=== PATIENT | male | born 1985 | race Hispanic/Latino ===

== ENCOUNTER 2019-10-17 17:30 | Emergency (ER) | payer SELFPAY ==
--- NOTE | 2019-10-17 18:28 | RAD REPORT ---
EXAM DESCRIPTION: Connor Single View10/17/2019 6:18 pm CLINICAL HISTORY: cough COMPARISON: none FINDINGS: The lungs appear clear of acute infiltrate. The heart is normal size IMPRESSION: No acute abnormalities displayed
[2019-10-17] MEDS ORDERED: CEFTRIAXONE/SWI 1gm 1 GM/10 ML SYR ONE (18:40)
[2019-10-17] MEDS ORDERED: METHYLPREDNISOLONE 125 MG INJ ONE (18:40)
[2019-10-17] MEDS ORDERED: NA CHLORIDE 0.9% 1,000 ML ONE (18:40)
[2019-10-17] MEDS ORDERED: predniSONE 20 MG TAB ONE (18:40)
[2019-10-17] MEDS ORDERED: AZITHROMYCIN IV 500 MG in NA CHLORIDE 0.9% 250 ML IVPB ONE (19:00)
[2019-10-17 19:13] LABS: Absolute Lymphocytes (CBC) 1.3 K/uL (0.7-4.9); Basophils % 0.2 % (0-1.3); Hematocrit 46.3 % (39.6-49.0); Lymphocytes % 26.3 % (15.3-44.8); MPV 9.5 fL (7.6-11.3); RBC Red Blood Cell Count 5.63 M/uL (4.33-5.43)
[2019-10-17 19:28] LABS: ALT/SGPT 30 U/L (12-78); AST/SGOT 34 U/L (15-37); Albumin 3.8 g/dL (3.4-5.0); Alkaline Phosphatase 48 U/L (45-117); BUN Blood Urea Nitrogen 16 mg/dL (7-18); Bicarbonate 29 mmol/L (21-32); Bilirubin Total 0.4 mg/dL (0.2-1.0); Glucose Level 91 mg/dL (74-106); Potassium 3.9 mmol/L (3.5-5.1); Protein, Total 7.7 g/dL (6.4-8.2); Sodium Level 140 mmol/L (136-145)
--- NOTE | 2019-10-17 19:33 | EDPHYS ---
Physician Documentation [facility] Name: Bill Ron Age: 34 yrs Sex: Male : 1985 Arrival Date: 10/17/2019 Time: 17:37 Bed 8 Private MD: ED Physician Amos Cox HPI: 10/16 18:17 This 34 yrs old Male presents to ER via EMS with complaints of Shortness Of eve Breath, COVID +. 18:17 The patient has shortness of breath at rest, with light activity. Onset: The eve symptoms/episode began/occurred 5 day(s) ago. Duration: The symptoms are continuous, and are steadily getting worse. The patient's shortness of breath is aggravated by coughing, walking. Associated signs and symptoms: Pertinent positives: non-productive cough, dizziness, nausea. Severity of symptoms: At their worst the symptoms were mild moderate in the emergency department the symptoms are unchanged. The patient has not experienced similar symptoms in the past. Historical: - Allergies: 17:40 No Known Allergies; bp - Home Meds: 17:40 None [Active]; bp - PMHx: 17:40 None; bp - Immunization history:: Adult Immunizations unknown. - Social history:: Smoking status: Patient denies any tobacco usage or history of. ROS: 18:18 Constitutional: Negative for fever, chills, and weight loss, Eyes: Negative for injury, eve pain, redness, and discharge, ENT: Negative for injury, pain, and discharge, Neck: Negative for injury, pain, and swelling, Cardiovascular: Negative for chest pain, palpitations, and edema, Abdomen/GI: Negative for abdominal pain, nausea, vomiting, diarrhea, and constipation, Back: Negative for injury and pain, : Negative for injury, bleeding, discharge, and swelling, MS/Extremity: Negative for injury and deformity, Skin: Negative for injury, rash, and discoloration, Neuro: Negative for headache, weakness, numbness, tingling, and seizure, Psych: Negative for depression, anxiety, suicide ideation, homicidal ideation, and hallucinations, Allergy/Immunology: Negative for hives, rash, and allergies, Endocrine: Negative for neck swelling, polydipsia, polyuria, polyphagia, and marked weight changes, Hematologic/Lymphatic: Negative for swollen nodes, abnormal bleeding, and unusual bruising. 18:18 Respiratory: Positive for cough, shortness of breath, on exertion. Exam: 18:18 Constitutional: This is a well developed, well nourished patient who is awake, alert, eve and in no acute distress. Head/Face: Normocephalic, atraumatic. Eyes: Pupils equal round and reactive to light, extra-ocular motions intact. Lids and lashes normal. Conjunctiva and sclera are non-icteric and not injected. Cornea within normal limits. Periorbital areas with no swelling, redness, or edema. ENT: Nares patent. No nasal discharge, no septal abnormalities noted. Tympanic membranes are normal and external auditory canals are clear. Oropharynx with no redness, swelling, or masses, exudates, or evidence of obstruction, uvula midline. Mucous membranes moist. Neck: Trachea midline, no thyromegaly or masses palpated, and no cervical lymphadenopathy. Supple, full range of motion without nuchal rigidity, or vertebral point tenderness. No Meningismus. Chest/axilla: Normal chest wall appearance and motion. Nontender with no deformity. No lesions are appreciated. Cardiovascular: Regular rate and rhythm with a normal S1 and S2. No gallops, murmurs, or rubs. Normal PMI, no JVD. No pulse deficits. Respiratory: Lungs have equal breath sounds bilaterally, clear to auscultation and percussion. No rales, rhonchi or wheezes noted. No increased work of breathing, no retractions or nasal flaring. Abdomen/GI: Soft, non-tender, with normal bowel sounds. No distension or tympany. No guarding or rebound. No evidence of tenderness throughout. Back: No spinal tenderness. No costovertebral tenderness. Full range of motion. Skin: Warm, dry with normal turgor. Normal color with no rashes, no lesions, and no evidence of cellulitis. MS/ Extremity: Pulses equal, no cyanosis. Neurovascular intact. Full, normal range of motion. Neuro: Awake and alert, GCS 15, oriented to person, place, time, and situation. Cranial nerves II-XII grossly intact. Motor strength 5/5 in all extremities. Sensory grossly intact. Cerebellar exam normal. Normal gait. Psych: Awake, alert, with orientation to person, place and time. Behavior, mood, and affect are within normal limits. 18:34 Musculoskeletal/extremity: DVT Exam: No signs of deep vein thrombosis. no pain, no eve swelling, no tenderness, negative Homans' sign noted on exam, no appreciated bluish discoloration, no erythema, no increased warmth. Vital Signs: 17:38 BP 130 / 80; Pulse 85; Resp 17; Temp 99.1; Pulse Ox 95% on 2 lpm NC; bp 18:45 BP 129 / 86; Pulse 75; Resp 23; Pulse Ox 99% ; bp 19:30 BP 114 / 81; Pulse 70; Resp 20; Pulse Ox 100% on 2 lpm NC; rv 20:30 BP 124 / 88; Pulse 73; Resp 19; Temp 98.7; Pulse Ox 100% on R/A; rv MDM: 17:46 Patient medically screened. [facility] 18:20 Data reviewed: vital signs, nurses notes, lab test result(s), radiologic studies, plain eve films. 10/16 18:17 Order name: CBC with Diff; Complete Time: 19:32 [facility] 10/16 18:17 Order name: Comprehensive Metabolic Panel; Complete Time: 19:32 eve 10/16 17:46 Order name: Chest Single View XRAY; Complete Time: 19:20 snw 10/16 18:17 Order name: Blood Culture Adult (2) [facility] 10/16 17:46 Order name: Droplet/Contact Precautions; Complete Time: 17:50 snw Administered Medications: 18:30 Drug: NS 0.9% 1000 ml Route: IV; Rate: 1 bolus; Site: left antecubital; bp 20:49 Follow up: IV Status: Completed infusion; IV Intake: 1000ml rv 18:30 Drug: SOLU-Medrol 125 mg Route: IVP; Site: left antecubital; bp 20:50 Follow up: Response: No adverse reaction rv 18:30 Drug: predniSONE 20 mg Route: PO; bp 20:51 Follow up: Response: No adverse reaction rv 18:45 Drug: Rocephin 1 grams Route: IV; Rate: per protocol; Site: left antecubital; bp 19:00 Follow up: IV Status: Completed infusion rv 20:50 Follow up: Response: No adverse reaction rv 19:50 Drug: Zithromax 500 mg Route: IVPB; Infused Over: 1 hrs; Site: left antecubital; rv 20:50 Follow up: Response: No adverse reaction rv 20:50 Follow up: IV Status: Completed infusion; IV Intake: 250ml rv Disposition: 10/17/19 19:32 Discharged to Home. Impression: Acute upper respiratory infection, unspecified, SARS-associated coronavirus as the cause of diseases classified elsewhere - covid 19 positive, Dyspnea. - Condition is Stable. - Discharge Instructions: Shortness of Breath, Upper Respiratory Infection, Adult, Cool Mist Vaporizer, Shortness of Breath, [id number], Cough, Adult, Ledz-rp-Diox, Cough, Adult, COVID-19. - Prescriptions for Prednisone 20 mg Oral Tablet - take 1 tablet by ORAL route once daily for 5 days; 5 tablet. Albuterol Sulfate 90 mcg/actuation - inhale 1-2 puff by INHALATION route every 4-6 hours; 1 Inhaler. Zithromax 500 mg Oral Tablet - take 1 tablet by ORAL route once daily for 4 days; 4 tablet. - Medication Reconciliation Form, Thank You Letter, Antibiotic Education, Prescription Opioid Use form. - Work release form (10/17/19 21:04). tt3 - Follow up: Private Physician; When: 2 - 3 days; Reason: Recheck today's complaints, Continuance of care, Re-evaluation by your physician. Follow up: Rashard Ratliff; When: 2 - 3 days; Reason: Recheck today's complaints, Continuance of care, Re-evaluation by your physician. - Problem is new. - Symptoms have improved. Signatures: Dispatcher [employer] EDAmos Hess MD MD cha Therrien, Shelly, FOAMING MACHINE OPERATOR-C FOAMING MACHINE OPERATOR-Fran Pal RN RN bp Vicente, Ronaldo, RN RN rv Trim, Tyler tt3 Corrections: (The following items were deleted from the chart) 20:55 19:32 10/17/2019 19:32 Discharged to Home. Impression: Acute upper respiratory rv infection, unspecified; SARS-associated coronavirus as the cause of diseases classified elsewhere - covid 19 positive; Dyspnea. Condition is Stable. Discharge Instructions: Shortness of Breath, Upper Respiratory Infection, Adult, Cool Mist Vaporizer, Shortness of Breath, Dwab-[id number]-Mwht, Cough, Adult, Ynuq-nb-Nzaa, Cough, Adult, COVID-19. Prescriptions for Prednisone 20 mg Oral Tablet - take 1 tablet by ORAL route once daily for 5 days; 5 tablet, Albuterol Sulfate 90 mcg/actuation - inhale 1-2 puff by INHALATION route every 4-6 hours; 1 Inhaler, Zithromax 500 mg Oral Tablet - take 1 tablet by ORAL route once daily for 4 days; 4 tablet. and Forms are Medication Reconciliation Form, Thank You Letter, Antibiotic Education, Prescription Opioid Use. Follow up: Private Physician; When: 2 - 3 days; Reason: Recheck today's complaints, Continuance of care, Re-evaluation by your physician. Follow up: Rashard Ratliff; When: 2 - 3 days; Reason: Recheck today's complaints, Continuance of care, Re-evaluation by your physician. Problem is new. Symptoms have improved. eve
--- NOTE | 2019-10-17 20:55 | ER ---
Nurse's Notes [facility] Name: Bill Ron Age: 34 yrs Sex: Male : 1985 Arrival Date: 10/17/2019 Time: 17:37 Bed 8 Private MD: Diagnosis: Acute upper respiratory infection, unspecified;SARS-associated coronavirus as the cause of diseases classified elsewhere-covid 19 positive;Dyspnea Presentation: 10/16 17:38 Chief complaint: EMS states: ON HOME QUARANTINE FOR COVID + x2 WEEKS, NOW WITH bp INCREASING SOB. Coronavirus screen: Surgical mask placed on patient. Patient moved to private room, placed in contact and droplet isolation with eye protection until further assessment. Ebola Screen: No symptoms or risks identified at this time. Initial Sepsis Screen: Does the patient meet any 2 criteria? No. Patient's initial sepsis screen is negative. Does the patient have a suspected source of infection? No. Patient's initial sepsis screen is negative. Risk Assessment: Do you want to hurt yourself or someone else? Patient reports no desire to harm self or others. Onset of symptoms is unknown. Care prior to arrival: IV initiated. 20 GA, in the left antecubital area. 17:38 Method Of Arrival: EMS: [facility] bp 17:38 Acuity: OLU 3 bp Triage Assessment: 17:40 General: Appears distressed, uncomfortable, ill, Behavior is cooperative, appropriate bp for age, anxious. Pain: Denies pain. EENT: No deficits noted. Neuro: No deficits noted. Cardiovascular: Rhythm is sinus rhythm. Respiratory: Reports shortness of breath Onset: The symptoms/episode began/occurred today, the patient has mild shortness of breath. GI: No signs and/or symptoms were reported involving the gastrointestinal system. : No signs and/or symptoms were reported regarding the genitourinary system. Derm: No deficits noted. Musculoskeletal: No deficits noted. Historical: - Allergies: 17:40 No Known Allergies; bp - Home Meds: 17:40 None [Active]; bp - PMHx: 17:40 None; bp - Immunization history:: Adult Immunizations unknown. - Social history:: Smoking status: Patient denies any tobacco usage or history of. Screenin:41 Abuse screen: Denies threats or abuse. Denies injuries from another. Nutritional bp screening: No deficits noted. Tuberculosis screening: No symptoms or risk factors identified. Fall Risk None identified. Assessment: 17:41 General: SEE TRIAGE NOTE. Pain: Denies pain. Cardiovascular: Rhythm is sinus rhythm. bp Respiratory: Airway is patent Respiratory effort is even, labored, Breath sounds are diminished bilaterally. 18:45 Reassessment: INITIAL ORDERS COMPLETED, IVF INFUSING. RESULTS PENDING. bp Vital Signs: 17:38 BP 130 / 80; Pulse 85; Resp 17; Temp 99.1; Pulse Ox 95% on 2 lpm NC; bp 18:45 BP 129 / 86; Pulse 75; Resp 23; Pulse Ox 99% ; bp 19:30 BP 114 / 81; Pulse 70; Resp 20; Pulse Ox 100% on 2 lpm NC; rv 20:30 BP 124 / 88; Pulse 73; Resp 19; Temp 98.7; Pulse Ox 100% on R/A; rv ED Course: 17:37 Patient arrived in ED. bp 17:40 Triage completed. bp 17:40 Arm band placed on. bp 17:41 Patient has correct armband on for positive identification. Bed in low position. Call bp light in reach. Side rails up X2. 17:41 Maintain EMS IV. Dressing intact. Good blood return noted. Site clean \T\ dry. Gauge \T\ bp site: 20 G LEFT AC. 17:44 Fran Christensen, CELESTINO is Primary Nurse. bp 17:46 Amos Cox MD is Attending Physician. eve 18:19 Chest Single View XRAY In Process Unspecified. EDMS 19:32 Rashard Ratliff MD is Referral Physician. eve 20:54 No provider procedures requiring assistance completed. IV discontinued, intact, rv bleeding controlled, No redness/swelling at site. Pressure dressing applied. Administered Medications: 18:30 Drug: NS 0.9% 1000 ml Route: IV; Rate: 1 bolus; Site: left antecubital; bp 20:49 Follow up: IV Status: Completed infusion; IV Intake: 1000ml rv 18:30 Drug: SOLU-Medrol 125 mg Route: IVP; Site: left antecubital; bp 20:50 Follow up: Response: No adverse reaction rv 18:30 Drug: predniSONE 20 mg Route: PO; bp 20:51 Follow up: Response: No adverse reaction rv 18:45 Drug: Rocephin 1 grams Route: IV; Rate: per protocol; Site: left antecubital; bp 19:00 Follow up: IV Status: Completed infusion rv 20:50 Follow up: Response: No adverse reaction rv 19:50 Drug: Zithromax 500 mg Route: IVPB; Infused Over: 1 hrs; Site: left antecubital; rv 20:50 Follow up: Response: No adverse reaction rv 20:50 Follow up: IV Status: Completed infusion; IV Intake: 250ml rv Intake: 20:49 IV: 1000ml; Total: 1000ml. rv 20:50 IV: 250ml; Total: 1250ml. rv Outcome: 19:32 Discharge ordered by . eve 20:54 Discharged to home ambulatory. rv 20:54 Condition: good 20:54 Discharge instructions given to patient, Instructed on discharge instructions, follow up and referral plans. medication usage, Demonstrated understanding of instructions, follow-up care, medications, Prescriptions given X 3. 20:55 Patient left the ED. rv Signatures: Dispatcher [employer] EDMS Amos Cox MD MD cha Peltier, Brian, RN RN Finn Mesa RN RN rv
[2019-10-17 21:05] VITALS: O2SAT 100
[2019-10-17 21:06] VITALS: BP 124/88; TEMP 98.7
== END 2019-10-17 20:55 | disposition home or self-care (01) ==
LOC: ER 17:30
DX: U07.1 COVID-19 (principal); J06.9 Acute upper respiratory infection, unspecified; R06.00 Dyspnea, unspecified
CPT/HCPCS: 36415; 71045; 80053; 85025; 87040; 87205; 96361; 96365; 96375; 99284; J0456; J0696; J2930; J7030; J7512

== ENCOUNTER 2021-11-15 10:38 | Emergency (ER) | payer SELFPAY ==
--- OUTSIDE RECORDS SUMMARY | 2021-11-15 10:41 | XMS REPORT | Continuity of Care Document ---
:1985 Author Organization [facility] t Address [address] [place] [address] Care Team Providers Name Role Phone PREZAS Attending Clinician Unavailable Prezas DO Attending Clinician Problems This patient has no known problems. Allergies, Adverse Reactions, Alerts This patient has no known allergies or adverse reactions. Medications This patient has no known medications. Procedures This patient has no known procedures. Encounters Start End Encounter Admission Attending Care Care Encounter Source Date/Time Date/Time Type Type Clinicians Facility Department ID 2021-10-06 2021-10-06 Outpatient LUCIAN RAMOS [id number] Lucian 00:00:00 00:00:00 JUSTIN clements 2021-10-06 2021-10-06 Outpatient LUCIAN RAMOS [id number] 47 Lucian 00:00:00 00:00:00 JUSTIN clements 2021-10-03 2021-10-03 [facility] Ankit Ramos [id number] Lucian 10:15:00 10:15:00 ne Justin Pearce [id number] Se charisse [id number] Results This patient has no known results.
--- NOTE | 2021-11-15 11:25 | ER ---
Nurse's Notes [facility] Name: Bill Ron Age: 36 yrs Sex: Male : 1985 Arrival Date: 11/15/2021 Time: 10:40 Bed Waiting Private MD: Diagnosis: Historical: ED Course: 11/15 11:25 Patient's name was called from ER lobby. No response. Unable to locate patient. Will jl7 disposition as left without being seen by a provider. Administered Medications: No medications were administered Outcome: 11:25 Patient left the ED. jl7 Signatures: Ruth Kennedy mr VergaraOdalis RN RN jl7 Corrections: (The following items were deleted from the chart) 11: 11:08 Chief complaint: Patient states: Swelling to left axilla area x 1 day, had covid jl7 booster 4 days ago; clear fluid from johnathon ears with decreased hearing to right ear x 6 months jl7 11:08 Coronavirus screen: At this time, the client does not indicate any symptoms jl7 associated with coronavirus-19. jl7 11:08 Ebola Screen: No symptoms or risks identified at this time. jl7 11 11:08 Initial Sepsis Screen: Does the patient meet any 2 criteria? No. Patient's jl7 initial sepsis screen is negative. Does the patient have a suspected source of infection? No. Patient's initial sepsis screen is negative. jl7 11: 11:08 Risk Assessment: Do you want to hurt yourself or someone else? Patient reports no jl7 desire to harm self or others. jl7 11:08 Onset of symptoms is unknown. 7 11:08 Method Of Arrival: Ambulatory 7 11:08 BP 122 / 69; Pulse 84bpm; Resp 17bpm; Pulse Ox 99% RA; Temp 98.2F; 113.4 kg jl7 Reported; Height 5 ft. 11 in.; BMI: 34.8; Pain 5/10; 11:08 Acuity: OLU 4 jl7 11:15 Allergies: PENICILLINS; jl7 11:15 Home Meds: None; jl7 11:15 PMHx: Diverticulitis; jl7 jl7 11:15 PMHx: Pancreatitis; jl7 jl7 11:15 PSHx: None; jl7 jl7 11:15 Immunization history: Client reports receiving the 2nd dose of the Covid vaccine, [place] jl7 11:15 Social history: Smoking status: Patient reports the use of cigarette tobacco jl7 products, smokes one pack cigarettes per day. jl7 11:15 General: Appears in no apparent distress. uncomfortable, Behavior is calm, jl7 cooperative, appropriate for age, jl7 11:15 Pain: Complains of pain in left axilla Pain currently is 5 out of 10 on a pain jl7 scale. jl7 11:15 GI: Patient currently denies diarrhea, nausea, vomiting, jl7 jl7 11:15 Arm band placed on right wrist. jl7 7 11: 10:40 Patient arrived in ED. mr jl7 11:15 Triage completed. jl7 jl7 11:17 Reassessment: BRENDAN Castillo in triage assessing pt jlFreddy jl7
== END 2021-11-15 11:25 | disposition left against medical advice (07) ==
LOC: ER 10:38
DX: Z02.9 Encounter for administrative examinations, unspecified (principal)